=== PATIENT | male | born 1985 | race Caucasian/White ===

== ENCOUNTER 2022-05-27 12:48 | Day surgery (SDC) | payer MEDICARE, OTHER ==
[2022-05-27] MEDS ORDERED: LIDOCAINE HCL 2% 100 MG/5 ML IJ ONE (12:49)
[2022-05-27] MEDS ORDERED: Depo-Medrol 40 MG/ML IM ONE (12:49)
[2022-05-27] MEDS ORDERED: DIPRIVAN 200 MG/20 ML IV ONE (15:26)
--- NOTE | 2022-05-27 16:29 | XRAY ---
Indication: Bilateral L4-S1 MBB. Intraoperative fluoroscopy provided for 8 seconds. Single digital spot image submitted for interpretation demonstrates posterior needle tips projecting over the expected left and right L4-S1 nerve roots. Correlate with intraoperative findings/report.
--- NOTE | 2022-05-27 16:31 | XRAY ---
8 seconds of fluoroscopy was used in surgery for a bilateral L4-S1 MBB.
[2022-05-27] MEDS ORDERED: Lactated Ringers 1,000 ML IV ONE (17:30)
== END 2022-05-27 15:43 | disposition home or self-care (01) ==
LOC: SDC-PAIN 12:48
PROVIDERS: ATTEND Psychiatry & Neurology Pain Medicine
DX: M47.816 Spondylosis without myelopathy or radiculopathy, lumbar region (principal); Z79.899 Other long term (current) drug therapy
CPT/HCPCS: 64493; 64494; 72020; 77002; J1030; J2704

== ENCOUNTER 2022-07-08 11:06 | Day surgery (SDC) | payer OTHER ==
[2022-07-08] MEDS ORDERED: Xylocaine 1% Vial 30 ML PF IJ ONE (11:07)
[2022-07-08] MEDS ORDERED: Marcaine Mpf 0.5% Vial 30 Ml IJ ONE (11:07)
[2022-07-08] MEDS ORDERED: Depo-Medrol 40 MG/ML IM ONE (11:07)
[2022-07-08] MEDS ORDERED: Xylocaine-Mpf 2% 5 Ml Vial ONE (13:17)
[2022-07-08] MEDS ORDERED: DIPRIVAN 200 MG/20 ML IV ONE (13:17)
[2022-07-08] MEDS ORDERED: Lactated Ringers 1,000 ML IV ONE (14:01)
--- NOTE | 2022-07-08 16:42 | XRAY ---
Indication: Left L4-S1 RFA. Intraoperative fluoroscopy provided for 25 seconds. 4 digital spot image submitted for interpretation demonstrates posterior needle tips projecting over the expected left L4-S1 nerve roots. Correlate with intraoperative findings/report.
--- NOTE | 2022-07-08 16:49 | XRAY ---
25 seconds fluoroscopy time in surgery for left L4-S1 RFA.
== END 2022-07-08 13:50 | disposition home or self-care (01) ==
LOC: SDC-PAIN 11:06
PROVIDERS: ATTEND Psychiatry & Neurology Pain Medicine
DX: M47.816 Spondylosis without myelopathy or radiculopathy, lumbar region (principal); Z79.899 Other long term (current) drug therapy
CPT/HCPCS: 64635; 64636; 72100; 77002; J1030; J2001; J2704

== ENCOUNTER 2022-11-25 13:46 | Day surgery (SDC) | payer OTHER ==
[2022-11-25] MEDS ORDERED: LIDOCAINE HCL 1% 50 MG/5 ML VL PF IJ ONE (13:47)
[2022-11-25] MEDS ORDERED: BUPIVACAINE 0.5% VIAL IJ ONE (13:47)
[2022-11-25] MEDS ORDERED: Depo-Medrol 40 MG/ML IM ONE (13:47)
[2022-11-25] MEDS ORDERED: Lactated Ringers 1,000 ML IV ONE (16:18)
[2022-11-25] MEDS ORDERED: DIPRIVAN 200 MG/20 ML IV ONE (16:24)
--- NOTE | 2022-11-25 19:11 | XRAY ---
Indication: Right L4-S1 RFA. Intraoperative fluoroscopy provided for 18 seconds. 4 digital spot image submitted for interpretation demonstrates posterior needle tips projecting over the expected right L4-S1 nerve roots. Correlate with intraoperative findings/report.
--- NOTE | 2022-11-26 09:00 | XRAY ---
18 seconds of fluoroscopy was used in surgery for a right L4-S1 RFA.
== END 2022-11-25 17:00 | disposition home or self-care (01) ==
LOC: SDC-PAIN 13:46
PROVIDERS: ATTEND Psychiatry & Neurology Pain Medicine
DX: M47.816 Spondylosis without myelopathy or radiculopathy, lumbar region (principal); Z79.899 Other long term (current) drug therapy
CPT/HCPCS: 64635; 64636; 72100; 77002; J1030; J2001; J2704

== ENCOUNTER 2024-03-29 14:06 | Day surgery (SDC) | payer OTHER ==
[2024-03-29] MEDS ORDERED: DIPRIVAN 200 MG/20 ML IV ONE ×3 (16:47→16:59)
[2024-03-29] MEDS ORDERED: Lactated Ringers 1,000 ML IV ONE (17:57)
--- NOTE | 2024-03-29 20:21 | XRAY ---
Indication: Right L4-S1 RFA. Intraoperative fluoroscopy provided for 22 seconds. 4 digital spot image submitted for interpretation demonstrates posterior needle tips projecting over the expected L4-S1 nerve roots. Correlate with intraoperative findings/report.
--- NOTE | 2024-03-30 09:13 | XRAY ---
22 seconds of fluoroscopy was used in surgery for a right L4-S1 RFA.
== END 2024-03-29 17:27 | disposition home or self-care (01) ==
LOC: SDC-PAIN 14:06
PROVIDERS: ATTEND Psychiatry & Neurology Pain Medicine
DX: M47.816 Spondylosis without myelopathy or radiculopathy, lumbar region (principal)
CPT/HCPCS: 64635; 64636; 72100; 77002; J2704

== ENCOUNTER 2024-04-05 15:04 | Day surgery (SDC) | payer OTHER ==
[2024-04-05] MEDS ORDERED: Depo-Medrol 40 MG/ML IM ONE (15:05)
[2024-04-05] MEDS ORDERED: LIDOCAINE HCL 1% 50 MG/5 ML VL PF IJ ONE (15:05)
[2024-04-05] MEDS ORDERED: BUPIVACAINE 0.5% VIAL IJ ONE (15:05)
[2024-04-05] MEDS ORDERED: DIPRIVAN 200 MG/20 ML IV ONE (16:16)
[2024-04-05] MEDS ORDERED: Lactated Ringers 1,000 ML IV ONE (16:58)
--- NOTE | 2024-04-05 17:35 | XRAY ---
Indication: Left L4-S1 RFA. Intraoperative fluoroscopy provided for 16 seconds. 3 digital spot images submitted for interpretation demonstrates posterior needle tips projecting over expected left L4-S1 nerve roots. Correlate with intraoperative findings/report.
--- NOTE | 2024-04-06 09:49 | XRAY ---
16 seconds of fluoroscopy was used in surgery for a left L4-S1 RFA.
== END 2024-04-05 16:47 | disposition home or self-care (01) ==
LOC: SDC-PAIN 15:04
PROVIDERS: ATTEND Psychiatry & Neurology Pain Medicine
DX: M47.816 Spondylosis without myelopathy or radiculopathy, lumbar region (principal)
CPT/HCPCS: 64635; 64636; 72100; 77002; J2001; J2704